=== PATIENT | male | born 1970 | race Caucasian/White ===

== ENCOUNTER → 2016-06-07 | Outpatient (CLI) | payer MEDICARE ==
[~2016-06-07] MED LIST: ALBUTEROL17 GM INH; AMBIEN10 MG PO; CHANTIX1 MG; DIAZEPAM PO; DICYCLOMINE HCL20 MG PO; DOLOBID500 MG PO; DOXYCYCLINE HY100 M1 PO; DOXYCYCLINE150 MG PO; FLEXERIL10 MG PO; HYDROCHLOROTHIA25 MG PO; MOBIC PO; NEURONTIN PO; NORCO 10/325 TA1 TAB PO; OPANA ER40 MG PO; OXYCONTIN PO; PEPCID AC20 MG PO; PERCOCET10 PO; PHENERGAN25 MG PO; PRILOSEC40 MG PO; SEROQUEL PO; SKELAXIN PO; SONATA PO; SUBOXONE 8 MG-1 EAC1 PO; ZANAFLEX PO
--- NOTE | ~2016-06-07 | MR32 ---
[facility] A Service [facility] RADIOLOGY TEXT RESULTS PATIENT: GAMALIEL ARMENTA JR LOCATION: [facility] : 72 UNIT #: [id number] AGE: [address]: NOAH PINTO MD (INT MED) SEX: M ORDER DR: [id number] [address] [address] [id number] O MR#: [id number] Acc #: [id number] NAME: GAMALIEL ARMENTA JR : 1970 SEX: M STUDY DATE/TIME: 06/07/2016 8:52 UNIT: [facility] ROOM: STUDY DESCRIPTION: MR Cervical Wo Contrast Attending Physician: Noah Pinto M.D. Referring Physician: Noah Pinto M.D. Ordering Physician: Noah Pinto M.D. Primary Care Physician: Noah Pinto M.D. MRI CENTER REPORT This report is preliminary unless electronic signature is present. EXAM MRI of the cervical spine without contrast dated 06/07/2016. COMPARISON None. HISTORY Increasing neck pain which extends to bilateral shoulders and down between scapula for many months. FINDINGS Multisequence multiplanar imaging of the cervical spine was obtained without contrast. Vertebral body heights and alignment are preserved. Degenerative disc disease is at multiple levels. Cord demonstrates normal course, caliber and signal. Imaged posterior fossa and craniovertebral junction are unremarkable. Pre and paravertebral soft tissues do not demonstrate any significant abnormality. Minimal bilateral mastoid tip mucosal thickening is seen. C2-3: Disc osteophyte complex with no canal stenosis or neural foraminal narrowing. C3-4: Disc osteophyte complex with borderline-sized canal. No significant neural foraminal narrowing. C4-5: Mild concentric disc bulge with mild bilateral facet changes particularly in the left. No neural foraminal narrowing. Borderline-sized canal. C5-6: Concentric disc bulge with borderline size to mild canal stenosis. No significant neural foraminal narrowing. Mild left facet hypertrophic change. [facility] A Service [facility] RADIOLOGY TEXT RESULTS PATIENT: GAMALIEL ARMENTA JR LOCATION: [facility] : 72 UNIT #: [id number] AGE: [address]: NOAH PINTO MD (INT MED) SEX: M ORDER DR: C6-7: Concentric disc bulge with superimposed atbej-zt-[id number] subarticular broad-based disc protrusion with mild canal stenosis. Mild right and moderate left facet hypertrophic changes are noted with qdbmiceh-jh-nhtfin left neural foraminal narrowing and moderate canal stenosis. C7-T1: Disc bulge without canal stenosis or neural foraminal narrowing. Mild to moderate left facet hypertrophic change. IMPRESSION 1. Degenerative changes are noted at multiple levels, relatively worse at C6-7 with bluzn-fr-kdrk subarticular broad-based disc protrusion contributing to moderate canal stenosis and left neural foraminal narrowing. Correlate with left C7 radiculopathy. 2. Cord is unremarkable. Dictated by... Thomas Kennedy M.D. THIS IS AN ELECTRONICALLY VERIFIED REPORT Thomas Kennedy M.D. at 06/09/2016 5:00 PM CPR/rnr TD: 06/08/2016 18:50 JOB #: [id number] MRI CENTER REPORT
--- NOTE | ~2016-06-07 | MR112 ---
[facility] A Service of [facility] RADIOLOGY TEXT RESULTS PATIENT: GAMALIEL ARMENTA JR LOCATION: [facility] : 72 UNIT #: [id number] AGE: [address]: NOAH PINTO MD (INT MED) SEX: M ORDER DR: [id number] [address] [address] [id number] O MR#: [id number] Acc #: [id number] NAME: GAMALIEL ARMENTA JR : 1970 SEX: M STUDY DATE/TIME: 06/07/2016 9:20 UNIT: [facility] ROOM: STUDY DESCRIPTION: MR Lumbar WWo Contrast Attending Physician: Noah Pinto M.D. Referring Physician: Noah Pinto M.D. Ordering Physician: Noah Pinto M.D. Primary Care Physician: Noah Pinto M.D. MRI CENTER REPORT This report is preliminary unless electronic signature is present. EXAM MRI of the lumbar spine with and without contrast dated 06/07/2016. COMPARISON CT abdomen and pelvis with contrast dated 05/05/2011. There are no prior CT or MRI lumbar spine studies. HISTORY Increasing low back pain, which extends into bilateral legs (right worse than left) for many years. History of lumbosacral surgery in 2002 and 2004. FINDINGS Multisequence multiplanar imaging of the lumbar spine was obtained with and without contrast. 20 mL of MultiHance was administered intravenously. Vertebral body heights and alignment are preserved. Bipedicular screws are noted from L4-S1. Intervertebral disc prosthesis is at L5-S1 without complete bony fusion. There is posterior decompression with prominent thecal sac at the level of L4-5 and L5-S1. Conus terminates at T12 and T1. Signal of conus is within normal limits. Suspicious faint enhancement of the nerve roots of the cauda equina cannot be excluded from the level of L4 inferiorly. Retroperitoneum is unremarkable. L1-2: Mild disc bulge and mild bilateral facet change with borderline-sized canal. Mild inferior bilateral neural foraminal encroachment. L2-3: Concentric disc bulge with mild inferior bilateral neural foraminal narrowing, sbna-lg-tupjccyl bilateral facet hypertrophic changes and borderline size to mild canal stenosis. L3-4: Concentric disc bulge with bilateral zftkvxua-qg-ujking facet hypertrophic changes and mild inferior bilateral neural foraminal STS. [facility] A Service of [facility] & [facility] RADIOLOGY TEXT RESULTS PATIENT: GAMALIEL ARMENTA JR LOCATION: [facility] : 72 UNIT #: [id number] AGE: [address]: NOAH PINTO MD (INT MED) SEX: M ORDER DR: narrowing with borderline size to mild canal stenosis. L4-5 and L5-S1: Postoperative changes without any drainable fluid collection. There appears to be a spur in the left subarticular to foraminal region at L5-S1 level extending towards the left facet joint. It is asymmetrical when compared to the right and causes mild adjacent neural foraminal encroachment, but the neural foramen itself is widely patent postsurgically. Faint enhancement of the nerve roots of the cauda equina from the level of L4 inferiorly cannot be completely excluded. There is no enlargement nerve roots nor is there empty thecal sign or conglomeration of the nerve roots. Nonspecific. IMPRESSION 1. Postoperative changes are noted from L4-S1 with bipedicular screws and L5-S1 intervertebral disc prosthesis. Posterior decompression is noted with widely patent thecal sac. No drainable fluid collection. 2. Suspicious faint enhancement of the nerve roots of the cauda equina cannot be excluded from the level of L4 inferiorly. Mild arachnoiditis cannot be excluded. It does not have other features of arachnoiditis to confirm it. 3. Mild degenerative changes are noted in the nonoperative levels. Dictated by... Thomas Kennedy M.D. THIS IS AN ELECTRONICALLY VERIFIED REPORT Thomas Kennedy M.D. at 06/09/2016 4:56 PM CPR/pc TD: 06/08/2016 13:16 JOB #: [id number] MRI CENTER REPORT
== END | disposition home or self-care (01) ==
LOC: SMRI 08:26
DX: M54.16 Radiculopathy, lumbar region (principal); M54.12 Radiculopathy, cervical region; M50.123 Cervical disc disorder at C6-C7 level with radiculopathy; M47.26 Other spondylosis with radiculopathy, lumbar region; M47.22 Other spondylosis with radiculopathy, cervical region; M48.06 Spinal stenosis, lumbar region; M48.02 Spinal stenosis, cervical region; Z98.890 Other specified postprocedural states
CPT/HCPCS: 72141; 72158; A9581